=== PATIENT | male | born 1965 | race Caucasian/White ===

== ENCOUNTER 2019-06-19 08:44 | Emergency (ER) | payer OTHER ==
--- NOTE | 2019-06-19 09:07 | EKG REPORT ---
SEVERITY:- NORMAL ECG - SINUS RHYTHM : Confirmed by: Bridgette Cannon MD 19-Jun-2019 09:06:38
--- NOTE | 2019-06-19 09:44 | RADIOLOGY REPORT (SQ) ---
EXAM DESCRIPTION: CHEST SINGLE VIEW IMAGES COMPLETED DATE/TIME: 06/19/2019 9:28 am REASON FOR STUDY: chest pain COMPARISON: None. NUMBER OF VIEWS: One view. TECHNIQUE: Single frontal radiographic view of the chest acquired. LIMITATIONS: None. FINDINGS: LUNGS AND PLEURA: No opacities, masses or pneumothorax. No pleural effusion. MEDIASTINUM AND HILAR STRUCTURES: No masses. Contour normal. HEART AND VASCULAR STRUCTURES: Heart normal in size. Normal vasculature. BONES: No acute findings. HARDWARE: None in the chest. OTHER: No other significant finding. IMPRESSION: NO SIGNIFICANT RADIOGRAPHIC FINDING IN THE CHEST. TECHNICAL DOCUMENTATION: JOB ID: [id number] 2010 [employer]- All Rights Reserved Reading location - IP/workstation name: [email or web address]
[2019-06-19 10:09] LABS: ALBUMIN 4.9 g/dL (3.5-5.0); ALKALINE PHOSPHATASE 61 U/L (38-126); ANION GAP 10 (5-19); ASPARTATE AMINO TRANSFERASE 32 U/L (17-59); BILIRUBIN,DIRECT 0.1 mg/dL (0.0-0.4); BILIRUBIN,TOTAL 0.6 mg/dL (0.2-1.3); BLOOD UREA NITROGEN 17 mg/dL (7-20); CALCIUM 9.8 mg/dL (8.4-10.2); CARBON DIOXIDE 27 mmol/L (22-30); CHLORIDE 103 mmol/L (98-107); CREATINE KINASE 141 U/L (55-170); GLUCOSE 201 mg/dL (75-110); POTASSIUM 4.4 mmol/L (3.6-5.0); TOTAL PROTEIN 8.4 g/dL (6.3-8.2)
[2019-06-19 10:20] LABS: CREATINE KINASE MB 1.94 ng/mL (<4.55)
[2019-06-19 10:21] LABS: TROPONIN I < 0.012 ng/mL
[2019-06-19] MEDS ORDERED: NORMAL SALINE 1000 ML 1,000 ML IV ONE (10:21)
[2019-06-19 10:22] LABS: ABSOLUTE EOSINOPHILS # (AUTO) 0.1 10^3/uL (0.0-0.6); ABSOLUTE LYMPHOCYTES (AUTO) 1.1 10^3/uL (0.5-4.7); ABSOLUTE MONOCYTES (AUTO) 0.3 10^3/uL (0.1-1.4); ABSOLUTE NEUT (AUTO) 3.8 10^3/uL (1.7-8.2); BASOPHILS % (AUTO) 0.2 % (0-2); EOSINOPHILS % (AUTO) 1.5 % (0-6); HEMATOCRIT 45.8 % (37.9-51.0); HEMOGLOBIN 15.6 g/dL (13.5-17.0); LYMPHOCYTES % (AUTO) 21.2 % (13-45); MEAN CORPUSCULAR HEMOGLOBIN 29.3 pg (27.0-33.4); MEAN CORPUSCULAR HGB CONC 34.1 g/dL (32.0-36.0); MEAN CORPUSCULAR VOLUME 86 fl (80-97); MONOCYTES % (AUTO) 5.8 % (3-13); PLATELET COUNT 241 10^3/uL (150-450); RED BLOOD COUNT 5.34 10^6/uL (4.35-5.55); RED CELL DISTRIBUTION WIDTH 14.3 % (11.5-14.0); SEGMENTED NEUTROPHILS % (AUTO) 71.3 % (42-78); TOTAL CELLS COUNTED % (AUTO) 100 %; WHITE BLOOD COUNT 5.3 10^3/uL (4.0-10.5)
[2019-06-19 10:50] LABS: APPEARANCE,URINE CLEAR; BILIRUBIN,URINE NEGATIVE (NEGATIVE); COLOR,URINE STRAW; GLUCOSE, URINE >=500 mg/dL (NEGATIVE); KETONES,URINE NEGATIVE (NEGATIVE); LEUKOCYTE ESTERASE,URINE NEGATIVE (NEGATIVE); NITRITE,URINE NEGATIVE (NEGATIVE); PROTEIN,URINE NEGATIVE (NEGATIVE); URINE SPECIFIC GRAVITY 1.014; UROBILINOGEN,URINE NEGATIVE mg/dL (<2.0)
[2019-06-19 11:10] LABS: URINE AMPHETAMINES SCREEN NEGATIVE; URINE BARBITURATES SCREEN NEGATIVE; URINE BENZODIAZEPINES SCREEN NEGATIVE; URINE COCAINE SCREEN NEGATIVE; URINE MARIJUANA (THC) SCREEN NEGATIVE; URINE METHADONE SCREEN NEGATIVE; URINE PHENCYCLIDINE SCREEN NEGATIVE
--- NOTE | 2019-06-19 14:26 | ER Document Report ---
Entered by LADY FOY SCRIBE 06/19/19 1012 Acting as scribe for:LOLA SAINZ MD ED General - General Chief Complaint: Chest Tightness Stated Complaint: CHEST PAIN Time Seen by Provider: 06/19/19 09:52 Primary Care Provider: ROSE ZULUAGA MD [Primary Care Provider] - Follow up as needed Information source: Patient Notes: This 54 year old male patient presents to the emergency department today with complaints of dizziness and dehydration since yesterday. Patient states last night he felt lightheaded and his chest also felt uncomfortable, so he visited urgent care. Patient states urgent care told him he was dehydrated and to go to the ED for a blood screening. Patient states his symptoms lessened after urgent care so he did not come to the ED. Patient states this morning there was a quick pain in his chest, his thighs hurt, and was generally weak. Patient states he has felt nauseous, but denies any vomiting, headaches, runny nose, nasal iona estion, or cough. Patient states he has a history of anxiety and this may be a reason for his chest pain. - Related Data Allergies/Adverse Reactions: No Known Allergies Allergy (Unverified 06/19/19 08:56) Past Medical History - General Information source: Patient - Social History Smoking Status: Never Smoker Cigarette use (# per day): No Frequency of alcohol use: None Drug Abuse: None Family History: Reviewed & Not Pertinent Patient has suicidal ideation: No Patient has homicidal ideation: No - Past Medical History Cardiac Medical History: Reports: Hx Hypercholesterolemia, Hx Hypertension Endocrine Medical History: Reports: Hx Diabetes Mellitus Type 2 Psychiatric Medical History: Reports: Hx Anxiety Review of Systems - Review of Systems Constitutional: See HPI, Weakness EENT: See HPI. denies: Nose congestion, Nose discharge Cardiovascular: See HPI, Chest pain, Dizziness, Lightheaded Respiratory: See HPI. denies: Cough Gastrointestinal: See HPI, Nausea. denies: Vomiting Genitourinary: No symptoms reported Male Genitourinary: No symptoms reported Musculoskeletal: See HPI Skin: No symptoms reported Hematologic/Lymphatic: No symptoms reported Neurological/Psychological: See HPI. denies: Headaches -: Yes All other systems reviewed and negative Physical Exam - Vital signs Vitals: Temp Pulse Resp BP Pulse Ox 97.8 F 87 16 146/76 H 98 06/19/19 08:45 06/19/19 08:45 06/19/19 08:45 06/19/19 08:45 06/19/19 08:45 - General General appearance: Appears well, Alert - HEENT Head: Normocephalic, Atraumatic Eyes: Normal Pupils: PERRL Ears: Normal External canal: Normal Tympanic membrane: Normal Nasal: Normal Pharynx: Normal - Respiratory Respiratory status: No respiratory distress Chest status: Nontender Breath sounds: Normal Chest palpation: Normal - Cardiovascular Rhythm: Regular Heart sounds: Normal auscultation Murmur: No - Abdominal Inspection: Normal Distension: No distension Bowel sounds: Normal Tenderness: Nontender - Extremities General upper extremity: Normal inspection. No: Edema General lower extremity: Normal inspection. No: Edema - Neurological Neuro grossly intact: Yes Cognition: Normal Orientation: AAOx4 Speech: Normal - Psychological Associated symptoms: Normal affect, Normal mood - Skin Skin Temperature: Warm Skin Moisture: Dry Skin Color: Normal Course - Re-evaluation Re-evalutation: 06/19/19 14:23 Patient is resting comfortably not showing any signs of distress. Vital signs are stable no evidence for an WI based on repeat exams as well as normal flat troponin at 0.012. - Vital Signs Vital signs: Temp Pulse Resp BP Pulse Ox 97.8 F 87 12 106/76 97 06/19/19 08:45 06/19/19 08:45 06/19/19 11:01 06/19/19 11:01 06/19/19 11:01 - Laboratory Result Diagrams: 06/19/19 09:10 06/19/19 09:10 Laboratory results interpreted by me: 06/19/19 06/19/19 06/19/19 09:10 09:10 10:14 RDW 14.3 H Glucose 201 H Total Protein 8.4 H Urine Glucose (UA) >=500 H Patient is a diabetic on medications that dumps glucose into the urine to lower serum glucose. - Diagnostic Test Radiology reviewed: Image reviewed, Reports reviewed Radiology results interpreted by me: 06/19/19 14:24 Chest x-ray no acute process - EKG Interpretation by Me Additional EKG results interpreted by me: 06/19/19 14:24 Twelve-lead EKG shows normal sinus rhythm rate of 73 no acute changes. Discharge - Discharge Clinical Impression: Dizziness, Dehydration, Panic attacks, Chest pain, atypical Condition: Stable Disposition: HOME, SELF-CARE Instructions: Chest Wall Pain ([facility]) Referrals: ROSE ZULUAGA MD [Primary Care Provider] - Follow up as needed I personally performed the services described in the documentation, reviewed and edited the documentation which was dictated to the scribe in my presence, and it accurately records my words and actions.
[2019-06-19 14:45] VITALS: BP 117/82
== END 2019-06-19 14:53 | disposition home or self-care (01) ==
LOC: ER 08:44
DX: E86.0 Dehydration (principal); F41.0 Panic disorder [episodic paroxysmal anxiety]; R07.89 Other chest pain; R42 Dizziness and giddiness; R11.0 Nausea; R53.1 Weakness; I10 Essential (primary) hypertension; E11.9 Type 2 diabetes mellitus without complications; Z79.899 Other long term (current) drug therapy
CPT/HCPCS: 93005; 99284; 96360; 36415; 82553; 82550; 85025; 80053; 81001; 84484; 80307; 71045; 93010; J7030

== ENCOUNTER 2020-02-13 18:27 | Emergency (ER) | payer OTHER ==
--- NOTE | 2020-02-13 18:37 | ER Document Report ---
ED Medical Screen (RME) - General Chief Complaint: High Blood Pressure Stated Complaint: LIGHTHEADED,BLURRED VISION Time Seen by Provider: 02/13/20 18:34 Primary Care Provider: ROSE ZULUAGA MD [Primary Care Provider] - Follow up as needed Mode of Arrival: Ambulatory Information source: Patient Notes: HPI; 54-year-old male presents to the emergency room states that since last he has not felt well, states some tunnel vision. Some lightheadedness and general weakness. He states that he noticed yesterday his blood pressure was elevated as high as 160/100, 183/116. Has been taking his blood pressure medications as prescribed. He denies any slurred speech, no generalized weakness. No fevers, no cough, no shortness of breath, no chest pain. No COVID-19 exposure. PE: Alert and oriented x3. Lungs: Clear to auscultation without rales, rhonchi, wheezes. Heart: Regular rate rhythm without murmurs, rubs, gallops. I have greeted and performed a rapid initial assessment of this patient. A comprehensive ED assessment and evaluation of the patient, analysis of test results and completion of the medical decision making process will be conducted by additional ED providers. I have specifically instructed the patient or family members with the patient to immediately return to any nursing staff should anything change in the patient's condition or with their chief complaint. TRAVEL OUTSIDE OF THE [place] IN LAST 30 DAYS: No - Related Data Allergies/Adverse Reactions: No Known Allergies Allergy (Unverified 06/19/19 08:56) Past Medical History - Past Medical History Cardiac Medical History: Reports: Hx Hypercholesterolemia, Hx Hypertension Endocrine Medical History: Reports: Hx Diabetes Mellitus Type 2 Psychiatric Medical History: Reports: Hx Anxiety Doctor's Discharge - Discharge Referrals: ROSE ZULUAGA MD [Primary Care Provider] - Follow up as needed
--- NOTE | 2020-02-13 18:55 | RADIOLOGY REPORT (SQ) ---
EXAM DESCRIPTION: CT HEAD WITHOUT IMAGES COMPLETED DATE/TIME: 02/13/2020 6:46 pm REASON FOR STUDY: visual changes COMPARISON: None. TECHNIQUE: Axial images acquired through the brain without intravenous contrast. Images reviewed wi th bone, brain and subdural windows. Additional sagittal and coronal reconstructions were generated. Images stored on PACS. All CT scanners at this facility use dose modulation, iterative reconstruction, and/or weight based d osing when appropriate to reduce radiation dose to as low as reasonably achievable (ALARA). [facility]: Dose Right [facility]: CareDose [facility]: Dose Right [facility]: Teradose 4D [facility]: Smart ElationEMR RADIATION DOSE: CT Rad equipment meets quality standard of care and radiation dose reduction techniq ues were employed. CTDIvol: 53.2 mGy. DLP: 1124 mGy-cm. mGy. LIMITATIONS: None. FINDINGS: VENTRICLES: Normal size and contour. CEREBRUM: No masses. No hemorrhage. No midline shift. No evidence for acute infarction. Normal gra y/white matter differentiation. No areas of low density in the white matter. CEREBELLUM: No masses. No hemorrhage. No alteration of density. No evidence for acute infarction. EXTRAAXIAL SPACES: No fluid collections. No masses. ORBITS AND GLOBE: No intra- or extraconal masses. Normal contour of globe without masses. CALVARIUM: No fracture. PARANASAL SINUSES: No fluid or mucosal thickening. SOFT TISSUES: No mass or hematoma. OTHER: No other significant finding. IMPRESSION: NORMAL BRAIN CT WITHOUT CONTRAST. EVIDENCE OF ACUTE STROKE: NO. COMMENT: Quality ID # [id number]: Final reports with documentation of one or more dose reduction techniques (e.g., Automated exposure control, adjustment of the mA and/or kV according to patient size, use of iterative reconstruction technique) TECHNICAL DOCUMENTATION: JOB ID: [id number] 2010 [email or web address]- All Rights Reserved Reading location - IP/workstation name: [email or web address]
[2020-02-13 19:30] LABS: ABSOLUTE EOSINOPHILS # (AUTO) 0.6 10^3/uL (0.0-0.6); ABSOLUTE LYMPHOCYTES (AUTO) 1.5 10^3/uL (0.5-4.7); ABSOLUTE MONOCYTES (AUTO) 0.6 10^3/uL (0.1-1.4); ABSOLUTE NEUT (AUTO) 3.8 10^3/uL (1.7-8.2); BASOPHILS % (AUTO) 0.1 % (0-2); EOSINOPHILS % (AUTO) 9.4 % (0-6); HEMATOCRIT 40.1 % (37.9-51.0); HEMOGLOBIN 13.9 g/dL (13.5-17.0); LYMPHOCYTES % (AUTO) 22.9 % (13-45); MEAN CORPUSCULAR HEMOGLOBIN 29.4 pg (27.0-33.4); MEAN CORPUSCULAR HGB CONC 34.8 g/dL (32.0-36.0); MEAN CORPUSCULAR VOLUME 84 fl (80-97); MONOCYTES % (AUTO) 9.5 % (3-13); PLATELET COUNT 209 10^3/uL (150-450); RED BLOOD COUNT 4.75 10^6/uL (4.35-5.55); RED CELL DISTRIBUTION WIDTH 14.2 % (11.5-14.0); SEGMENTED NEUTROPHILS % (AUTO) 58.1 % (42-78); TOTAL CELLS COUNTED % (AUTO) 100 %; WHITE BLOOD COUNT 6.5 10^3/uL (4.0-10.5)
[2020-02-13 19:49] LABS: ALBUMIN 4.1 g/dL (3.5-5.0); ALKALINE PHOSPHATASE 50 U/L (38-126); ANION GAP 6 (5-19); ASPARTATE AMINO TRANSFERASE 24 U/L (17-59); BILIRUBIN,DIRECT 0.1 mg/dL (0.0-0.4); BILIRUBIN,TOTAL 0.6 mg/dL (0.2-1.3); BLOOD UREA NITROGEN 25 mg/dL (7-20); CALCIUM 9.2 mg/dL (8.4-10.2); CARBON DIOXIDE 28 mmol/L (22-30); CHLORIDE 104 mmol/L (98-107); GLUCOSE 151 mg/dL (75-110); POTASSIUM 3.8 mmol/L (3.6-5.0)
--- NOTE | 2020-02-13 20:01 | RADIOLOGY REPORT (SQ) ---
EXAM DESCRIPTION: CHEST 2 VIEWS IMAGES COMPLETED DATE/TIME: 02/13/2020 7:53 pm REASON FOR STUDY: weakness COMPARISON: 06/19/2019 EXAM PARAMETERS: NUMBER OF VIEWS: two views TECHNIQUE: Digital Frontal and Lateral radiographic views of the chest acquired. RADIATION DOSE: NA LIMITATIONS: none FINDINGS: LUNGS AND PLEURA: No opacities, masses or pneumothorax. No pleural effusion. MEDIASTINUM AND HILAR STRUCTURES: No masses or contour abnormalities. HEART AND VASCULAR STRUCTURES: Heart normal size. No evidence for failure. BONES: No acute findings. HARDWARE: None in the chest. OTHER: No other significant finding. IMPRESSION: NO ACUTE RADIOGRAPHIC FINDING IN THE CHEST. TECHNICAL DOCUMENTATION: JOB ID: [id number] 2010 [employer]- All Rights Reserved Reading location - IP/workstation name: [email or web address]
--- NOTE | 2020-02-14 01:51 | ER Document Report ---
ED General - General Chief Complaint: Blurred Vision Stated Complaint: LIGHTHEADED,BLURRED VISION Time Seen by Provider: 02/13/20 18:34 Primary Care Provider: ROSE ZULUAGA MD [Primary Care Provider] - Follow up as needed Mode of Arrival: Ambulatory TRAVEL OUTSIDE OF THE [place] IN LAST 30 DAYS: No - HPI Notes: Patient presents complaining of paroxysmal hypertension. He has been having episodes at home where he will suddenly, for no particular reason, feel strange sensation into his chest leading to his pulse and blood pressure going up. He feels flushed, lightheaded, sometimes gets tunnel vision, and feels as though he is going to pass out. He has measured his blood pressure during these episodes and it has been as high as the 180s systolic and the 1-teens diastolic. He was evaluated for similar symptoms in the emergency department several months ago. He was told by the clinician who was seen him at that time that they felt it was anxiety. The patient does admit to a history of anxiety but he says he has had anxiety on and off since he was 11 years old. He knows how that feels and this feels somewhat different from that. When it occurs, about 90% of the time it is after the patient has eaten supper and has a full stomach. For example, in this evening's case, they had finished dinner and he went to sit on the couch to watch some television. He was lying on the couch semirecumbent not stressing or straining at all but feeling somewhat full when he began having the sensations. His girlfriend took his blood pressure and found that it was elevated. They took it again in about 20 minutes and found it was actually rising so decided to come to the emergency department for further evaluation. Patient states that he has no particular stressors in his life. His job is going well and he does not find it particularly taxing. 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 He says their finances are okay and their relationship is good. He has had fairly extensive diagnostic evaluations in the past it sounds like, including upper endoscopy, colonoscopy, cystoscopy for microscopic hematuria, and various imaging studies. None of these have revealed anything that would explain his current symptoms. He is otherwise in his usual state of health. - Related Data Allergies/Adverse Reactions: No Known Allergies Allergy (Unverified 06/19/19 08:56) Past Medical History - General Information source: Patient - Social History Smoking Status: Never Smoker Family History: Reviewed & Not Pertinent - Medical History Notes: Past medical history as documented in electronic health record is reviewed. - Past Medical History Cardiac Medical History: Reports: Hx Hypercholesterolemia, Hx Hypertension Endocrine Medical History: Reports: Hx Diabetes Mellitus Type 2 Psychiatric Medical History: Reports: Hx Anxiety Review of Systems - Review of Systems Notes: All other systems were reviewed and are negative or noncontributory except as noted in the present illness. Physical Exam - Vital signs Vitals: Temp Pulse Resp BP Pulse Ox 98.4 F 91 20 145/83 H 95 02/13/20 18:47 02/13/20 18:47 02/13/20 18:47 02/13/20 18:47 02/13/20 18:47 - Notes Notes: Well-developed well-nourished male no acute distress. Vital signs and nursing chief complaint are reviewed. Lungs: Clear to auscultation all harris. Heart: Regular rate and rhythm no murmur. Abdomen: Soft nontender no masses organomegaly. Course - Re-evaluation Re-evalutation: 02/14/20 03:41 Patient rested comfortably throughout his stay and his blood pressure gradually declined. Once all his diagnostic studies were back I was able to go in and talk to him and examined him. He and I and his girlfriend talked for about 20 minutes about various differential diagnostic possibilities. Given his history, I think neuroendocrine tumors such as pheochromocytoma or carcinoid, would be high on the list of things that could be causing his problem. Thyroid disease would also have to be considered. Ultimately, I suggested to him that he return to his primary care provider and ask about these various entities. His primary care office may be comfortable in evaluating him for this or they may wish to refer him to an retail mortgage banker. - Vital Signs Vital signs: Temp Pulse Resp BP Pulse Ox 98.4 F 75 14 150/94 H 96 02/13/20 18:47 02/14/20 02:21 02/14/20 02:21 02/14/20 02:21 02/14/20 02:21 - Laboratory Result Diagrams: 02/13/20 19:00 02/13/20 19:00 Laboratory results interpreted by me: 02/13/20 02/13/20 19:00 19:00 RDW 14.2 H Eos % (Auto) 9.4 H BUN 25 H Glucose 151 H Discharge - Discharge Clinical Impression: Paroxysmal hypertension Condition: Good Disposition: HOME, SELF-CARE Additional Instructions: Many different things can contribute to your problem. Talk to your doctor about the possibility of your having a neuroendocrine tumor such as pheochromocytoma or carcinoid. These sorts of problems can be diagnosed with specialized blood and urine testing. You may also wish to discuss the possibility of sleep apnea with your doctor. In many cases home testing can be used to screen for sleep apnea, and a formal sleep study is only needed if treatment is required. Return to the emergency department if any other concerning symptoms develop. Referrals: ROSE ZULUAGA MD [Primary Care Provider] - Follow up as needed
[2020-02-14 02:30] VITALS: BP 150/94
--- NOTE | 2020-02-14 17:53 | EKG REPORT ---
SEVERITY:- ABNORMAL ECG - SINUS RHYTHM LEFT ATRIAL ABNORMALITY : Confirmed by: Gee Zeng 14-Feb-2020 17:52:52
== END 2020-02-14 02:30 | disposition home or self-care (01) ==
LOC: ER 18:27
DX: I15.9 Secondary hypertension, unspecified (principal); H53.8 Other visual disturbances; R42 Dizziness and giddiness; E11.9 Type 2 diabetes mellitus without complications; F41.9 Anxiety disorder, unspecified
CPT/HCPCS: 36415; 70450; 71046; 80053; 84484; 85025; 93005; 93010; 99285